=== PATIENT | female | born 2000 | race Caucasian/White ===

== ENCOUNTER 2020-03-19 00:01 | Emergency (ER) | payer OTHER ==
[2020-03-19 00:40] LABS: BASOPHIL 0.4 % (0-2); EOSINOPHIL 4.8 % (0-5); HGB 14.8 g/dl (12.5-16.0); LYMPHOCYTE 33.4 % (15-48); MCH 27.7 pg (25.0-31.0); MCHC 33.6 g/dL (32.0-36.0); MCV 82.4 fL (78.0-100.0); MONOCYTE 6.4 % (0-12); MPV 10.7 fL (6.0-9.5); NEUTROPHIL 54.8 % (41-80); NRBC 0; PLT 198 K/uL (150-400); RBC 5.34 M/uL (4.20-5.40); RDW 12.1 % (11.5-14.0)
[2020-03-19 00:46] LABS: BILIRUBIN NEGATIVE (NEGATIVE); BLOOD NEGATIVE Ery/uL (NEGATIVE); CLARITY CLEAR (CLEAR); COLOR YELLOW (YELLOW); GLUCOSE (U) NORMAL (NORMAL); LEUKOCYTES NEGATIVE Leu/uL (NEGATIVE); NITRITE NEGATIVE (NEGATIVE); PROTEIN NEGATIVE (NEGATIVE); SPECIFIC GRAVITY 1.025 (1.001-1.030); UROBILINOGEN 0.2 mg/dL (0.2-1.0)
[2020-03-19 00:57] LABS: ALBUMIN 3.5 g/dL (3.4-5.0); BILIRUBIN - TOTAL 0.2 mg/dL (0.2-1.0); BUN/CREAT RATIO (CALC) 21.9 RATIO; CREATININE 0.64 mg/dL (0.51-0.95); GLOBULIN (CALCULATION) 3.6 g/dL; TOTAL PROTEIN 7.1 g/dL (6.4-8.2)
== END 2020-03-19 04:15 | disposition home or self-care (01) ==
LOC: FER 00:01
PROVIDERS: Emergency Medicine
DX: R10.2 Pelvic and perineal pain (principal); R19.5 Other fecal abnormalities; F17.210 Nicotine dependence, cigarettes, uncomplicated; Z90.5 Acquired absence of kidney
CPT/HCPCS: 36415; 80053; 81003; 85025; Q9967